=== PATIENT | female | born 1990 | race Caucasian/White ===

== ENCOUNTER 2023-12-05 14:53 | Emergency (ER) | payer OTHER ==
[~2023-12-05] VITALS: Ht 167.6 cm; Wt 64.9 kg
[2023-12-05 15:02] VITALS: TEMP 98.3
[2023-12-05] MEDS ORDERED: KETOROLAC TROMETHAMINE INJ 30 MG/ML VIAL ONE (15:32)
[2023-12-05] MEDS ORDERED: LORAZEPAM 0.5 MG TABLET ONE (15:32)
[2023-12-05] MEDS ORDERED: diphenhydrAMINE HCL 25 MG CAPSULE ONE (15:33)
[2023-12-05] MEDS: LORAZEPAM 1 MG TABLET PO ONE (15:41)
[2023-12-05] MEDS: DIPHENHYDRAMINE HCL 12.5 MG/5 ML UDC PO ONE (15:41)
[2023-12-05] MEDS: KETOROLAC TROMETHAMINE INJ 30 MG/ML VIAL IM ONE (15:42)
[2023-12-05 15:53] LABS: BASOPHILS % (AUTO) 0.2 % (0.0-2.0); EOSINOPHILS # (AUTO) 0.1 K/uL (0.0-0.7); EOSINOPHILS % (AUTO) 1.3 % (0.0-6.0); HEMATOCRIT 40 % (33-45); HEMOGLOBIN 13.2 g/dL (11.5-14.8); LYMPHOCYTES # (AUTO) 1.9 K/uL (0.8-4.8); LYMPHOCYTES % (AUTO) 28.9 % (20.0-44.0); MEAN CORPUSCULAR HEMOGLOBIN 29 PG (26.0-33.0); MEAN CORPUSCULAR HGB CONC 33 g/dl (31.0-36.0); MEAN CORPUSCULAR VOLUME 87 fL (82-100); MONOCYTES # (AUTO) 0.5 K/uL (0.1-1.30); NEUTROPHILS % (AUTO) 61.6 % (43.0-81.0); PLATELET COUNT (AUTO) 223 K/uL (150-450); RED BLOOD CELL COUNT(AUTO) 4.64 MIL/uL (4.0-5.2); RED CELL DISTRIBUTION WIDTH 13.1 % (11.5-15.0); WHITE BLOOD COUNT (AUTO) 6.5 K/uL (4.3-11.0)
[2023-12-05 16:09] LABS: INR 0.95 (0.91-1.10); PARTIAL THROMBOPLASTIN TIME 30.4 SEC (24.3-34.3); PROTHROMBIN TIME 10.1 SECS (9.2-11.1)
[2023-12-05 16:25] LABS: CALCIUM, SERUM 10.1 mg/dL (8.5-10.1); CREATININE 0.7 mg/dL (0.6-1.3); POTASSIUM 4.5 mmol/L (3.5-5.1)
[2023-12-05 16:30] LABS: ALBUMIN 3.8 g/dL (3.4-5.0); BILIRUBIN,TOTAL 0.3 mg/dL (0.2-1.0); TOTAL PROTEIN, SERUM 7.9 g/dL (6.4-8.2)
[2023-12-05] MEDS ORDERED: ONDA4TAB11 PO (16:49)
[2023-12-05] MEDS ORDERED: KETO10TA2 PO (16:49)
[2023-12-05] MEDS ORDERED: LORA-258 PO (16:49)
[2023-12-05 17:00] VITALS: BP 112/82; O2SAT 98
[2023-12-05] MEDS ORDERED: CEPH500T PO (18:40)
== END 2023-12-05 17:01 | disposition home or self-care (01) ==
LOC: ER 14:53
DX: S01.83XA Puncture wound without foreign body of other part of head, initial encounter (principal); Z79.899 Other long term (current) drug therapy; Z60.2 Problems related to living alone; W57.XXXA Bitten or stung by nonvenomous insect and other nonvenomous arthropods, initial encounter; Y93.89 Activity, other specified; Y92.89 Other specified places as the place of occurrence of the external cause; Y99.8 Other external cause status
CPT/HCPCS: 99283; 96372; 85025; 83690; 36415; 80053; 85730; Q0163 ×2; J1885